=== PATIENT | female | born 1950 | race Caucasian/White ===

== ENCOUNTER 2016-09-15 16:22 | Inpatient (IN) | payer OTHER ==
[~2016-09-15] VITALS: Ht 170.2 cm; Wt 61.7 kg
--- NOTE | ~2016-09-15 | HC ---
[facility] [place] [address] CONSULTATION Name: VERONA BHATT Room #: 460-P ADM IN M.R.#: [id number] Admission: 09/15/16 Attend Phys: Reese Joseph DO Discharge: Date of : 46 Report #: [id number] THIS REPORT FOR: //name// CC: Fredi Joseph DATE OF SERVICE: 09/17/2016 REASON FOR CONSULTATION: Hypoxemia. IMPRESSION: 1. Hypoxemia, question etiology. 2. Left infiltrate and small effusion, question etiology whether this is aspiration pneumonia or result of radiation and small cell lung carcinoma. 3. History of lung carcinoma. 4. Diastolic heart failure. 5. History of breast carcinoma. 6. Abdominal aortic aneurysm. 7. History of tobacco use. 8. Nonsyncopal fall with injury. PLAN: We will obtain records from [facility]. Agree with current antibiotics and corticosteroids and do sputum. DVT prophylaxis per primary. HISTORY OF PRESENT ILLNESS: A 66-year-old female with history of small cell lung CA in 2011, treated by Dr. España and sees Dr. Hartley at [facility]. 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 She denies current shortness of breath or chest pain or sputum production. I showed her x-ray, but she does not recall changes. MEDICATIONS: Include atorvastatin, Prozac, eye drops, Plavix and aspirin. SOCIAL HISTORY: Positive tobacco. Negative ETOH. PAST MEDICAL HISTORY: Includes lung CA, breast CA, shingles, cornea transplant, osteoporosis. REVIEW OF SYSTEMS: Denies fever, chills or sweats. Denies progressive cough or shortness of breath. Denies current palpitations. Positive nausea and vomiting throughout her stay here and dizziness. She does not feel she aspirated. PHYSICAL EXAMINATION: VITAL SIGNS: T-max last night was 100.4, this morning 98, pulse 97, respirations 20 and BP 119/50. EYES: Negative icterus. NECK: Trachea midline. [facility] [address] [place] [address] CONSULTATION Name: VERONA BHATT Room #: 460-P [facility] IN M.R.#: [id number] Admission: 09/15/16 Attend Phys: Reese Joseph DO Discharge: Date of : 46 Report #: [id number] LUNGS: Coarse, left greater than right. HEART: Regular. ABDOMEN: Bowel sounds present. EXTREMITIES: Show no cyanosis or edema. Moved all extremities. LABORATORY DATA: A pH 7.313, pCO2 of 43, pO2 80 and bicarbonate 21. INR 1. White count 11.3, hemoglobin 12 and platelets 161. RADIOLOGICAL DATA: CT PE protocol showed left infiltrate, no embolus and small left effusion. We will follow closely with you. By: 2033 [id number] Kamila Gutierres MD /nt
--- NOTE | ~2016-09-15 | EKG ---
[place] [address] [facility] [place] [address] ELECTROCARDIOGRAM REPORT Name: KARINA BHATTMARISOL Douglas Room #: 460-P ADM IN M.R.#: [id number] Admission: 09/15/16 Attend Phys: Reese Joseph DO Discharge: Date of : 46 Report #: [id number] THIS REPORT FOR: //name// 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
--- NOTE | ~2016-09-15 | CNG ---
[facility] [place] [address] CYTO-NONGYN REPORT PROCEDURE Name: KARINA BHATTMARISOL Douglas Room #: 460-P [facility] IN M.R.#: [id number] Admission: 09/15/16 Date of : 46 Discharge: 09/20/16 Report #: [id number] Path Case #: [id number] CYTOPATHOLOGY REPORT COLLECTION DATE: 09/19/2016 RECEIVED DATE: 09/19/2016 SUBMITTING PHYS: Dr. Kamila Gutierres OTHER PHYS: Dr. Reese Fontaine CLINICAL HISTORY: Right sacral fracuture. SPECIMEN(S) RECEIVED: A.Sputum * * * * * * * * * * * * FINAL DIAGNOSIS: A. Sputum: - No malignant cells identified. - Reactive squamous epithelial cells, acute and chronic inflammatory cells present along with debris. - Fungal organisms morphologically consistent with Amanda species are present (cannot exclude oral contamination). PATHOLOGIST: Nadja Britt M.D. REPORT ELECTRONICALLY SIGNED BY: Nadja Britt M.D. DATE/TIME: 09/20/2016 16:08 * * * * * * * * * * * * GROSS PATHOLOGY: A. Sputum: The specimen is submitted unfixed, labeled "Verona Bhatt". Received by the Cytology Department is two mL of thick yellow fluid. One ThinPrep slide was prepared. (clt 09.19.2016) MAINTENANCE WORKER(S): VIDHYA Perez(ASCP) INITIAL CPT CODE(S): A; 33264 Professional services performed by [facility] at [facility] [address], [place] [address] Technical services performed by [facility] at [address] [place] [address], [address], [place] [address]. [facility] [address] [place] [address] CYTO-NONGYN REPORT PROCEDURE Name: VERONA BHATT Room #: 460-P DIS IN M.R.#: [id number] Admission: 09/15/16 Date of : 46 Discharge: 09/20/16 Report #: [id number] Path Case #: [id number] [address] [facility] [address] [place] [address] PHONE: [phone] DIRECTOR: John Ken M.D. * * * END OF REPORT * * *
--- NOTE | ~2016-09-15 | HC ---
[facility] [place] [address] CONSULTATION Name: YOSI RUBINVERONA LAND Room #: 460-P [facility] IN M.R.#: [id number] Admission: 09/15/16 Attend Phys: Reese Joseph DO Discharge: 09/20/16 Date of : 46 Report #: [id number] THIS REPORT FOR: //name// CC: Fredi Joseph REASON FOR CONSULTATION: Elevated troponin. HISTORY OF PRESENT ILLNESS: The patient is a 66-year-old woman with a complicated history including stage IV small-cell lung cancer diagnosed in 2010 for which she received radiation and chemotherapy. She has a history of left breast cancer with lumpectomy and chemo and radiation therapy as well as peripheral vascular disease and a 3.9-cm abdominal aortic aneurysm. She was at [employer] and fell after losing her balance from a bench. She "fell on her butt and broke her sacrum." While in the hospital, she has been hypoxemic. A variety of tests have been done including a proBNP, which was elevated at 4955, a troponin that was elevated at 0.71, and a CAT scan of the chest, which demonstrated dense consolidating opacities throughout the left lung. I have been asked to see her in light of her troponin elevation. She denies chest pain or pressure. She follows closely with Dr. Kim at [facility] who performed stress testing and keeps an eye on her small infrarenal abdominal aortic aneurysm. Her last stress test she thinks was about 2 years ago and was nonischemic. She denies chest pain, pressure, or ischemic type symptoms. She denies heart failure symptoms including orthopnea or paroxysmal nocturnal dyspnea. 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 Oxygen therapy has not been prescribed. She has been hypoxemic here at this hospital. MEDICATIONS: Her medicines include eye drops, atorvastatin 10 mg daily, Prozac 20 mg daily, Plavix 75 mg daily, and aspirin 81 mg daily. PAST MEDICAL HISTORY: Her past history is notable for carotid stenosis treated medically, this was by angiography in 10/2015. There was complete occlusion of the right vertebral at its origin and an 80% stenosis of the left vertebral. She has a history of dyslipidemia and lung cancer as detailed above, small-cell, stage IV in 2010, shingles, chronic hypotension, osteoporosis, breast cancer with lumpectomy, corneal transplant, and dyslipidemia. SOCIAL HISTORY: She is . She is an ongoing smoker. FAMILY HISTORY: Unremarkable for premature coronary disease. REVIEW OF SYSTEMS: All systems negative except as that noted above. PHYSICAL EXAMINATION: GENERAL: Reveals a thin, chronically debilitated woman who is in no distress. [address] [address] CONSULTATION Name: YOSI CONKLINVERONA R Room #: 460-P [facility] IN M.R.#: [id number] Admission: 09/15/16 Attend Phys: Reese Joseph DO Discharge: 09/20/16 Date of : 46 Report #: [id number] VITAL SIGNS: Blood pressure is 119/50, heart rate of 97 and regular, temperature earlier yesterday was 100.4, she is currently afebrile, 5 feet 7 inches tall, and 136 pounds. HEENT: There are neither xanthelasma, subcutaneous xanthomata, oral mucosal or digital cyanosis, or kyphoscoliosis present. CHEST: Reveals diminished breath sounds throughout the left lung. CARDIAC: Reveals a regular rate and rhythm with normal S1, S2. Jugular venous pressure is not elevated. ABDOMEN: Soft and nontender. EXTREMITIES: Without cyanosis, clubbing, or edema. Radial pulses are 2+. NEUROLOGIC: She is alert with a nonfocal exam. LABORATORY DATA: EKG: Sinus rhythm, normal tracing. Sodium 132, potassium 4.2, and creatinine 0.9. Troponin 0.71. ProBNP of 4955. White count 11.3, hemoglobin 12, hematocrit 37, and platelet count 161. Chest x-ray demonstrates extensive opacities throughout the left lung. IMPRESSION: 1. Non-syncopal fall with injury. 2. Small troponin elevation in the setting of significant hypoxemia, normal EKG and no angina. I believe this is most consistent with supply-demand mismatch (type 2 myocardial infarction). 3. Lung cancer, stage IV, small-cell with remote chemotherapy and radiation therapy. 4. Carotid stenosis. 5. Diastolic heart failure; cor pulmonale, contributing to elevated BNP. 6. Breast cancer. 7. Abdominal aortic aneurysm, 3.9 cm, asymptomatic. 8. Chronic low blood pressures, asymptomatic. 9. Tobacco dependency. RECOMMENDATIONS: Continue therapy with Plavix and Lipitor. Her volume status is stable. I have encouraged smoking cessation. At this point, no additional cardiovascular testing is needed, particularly in the absence of symptoms. I have discussed these issues with the patient and her . Thank you for asking me to participate in her care. <ELECTRONICALLY SIGNED> By: Davy Brooks MD, [facility] 09/20/16 1635 1104 [id number] Davy Brooks MD, FACC /nt
[2016-09-15 16:25] VITALS: BP 141/54
[2016-09-15] MEDS ORDERED: PROZAC20 MG PO (16:35)
[2016-09-15] MEDS ORDERED: LIPITOR 10 MG10 M1 PO (16:35)
[2016-09-15] MEDS ORDERED: PLAVIX 75 MG TA75 M1 PO (16:36)
[2016-09-15] MEDS ORDERED: PRED-FORTE OPHTH1 M1 OP (16:37)
[2016-09-15] MEDS ORDERED: ASPIR 8181 M1 PO (16:38)
[2016-09-15 18:49] LABS: ABSOLUTE NEUTROPHILS 8.8 thou/uL (1.4-8.2); BASOPHILS 0.4 % (0.0-2.0); EOSINOPHILS 0.9 % (0.0-3.0); HEMATOCRIT 39.7 % (37.0-47.0); LYMPHOCYTES 6.7 % (24.0-44.0); MCH 28.5 pg (26.0-34.0); MCHC 32.6 g/dL (28.0-37.0); MCV 87.4 fL (80.0-100.0); MONOCYTES 4.5 % (1.0-8.0); PLATELET COUNT 202 thou/uL (150-400); POLYS 87.5 % (36.0-66.0); RBC 4.54 mil/uL (4.20-5.00); RDW 14.4 % (10.5-14.5); WBC 10.1 thou/uL (4.0-11.0)
[2016-09-15 18:52] LABS: MANUAL DIFF NO
[2016-09-15 18:55] VITALS: BP 142/61
[2016-09-15 18:57] LABS: CALCIUM 8.5 mg/dL (8.5-10.1); CREATININE 0.8 mg/dL (0.6-1.0)
[2016-09-15 19:34] VITALS: BP 122/50
[2016-09-15] MEDS ORDERED: SYMBICORT160 MCG/4. INH (21:43)
[2016-09-15] MEDS ORDERED: BRIMONIDINE TAR1 BO1 OPHTHALMIC (21:45)
[2016-09-15] MEDS ORDERED: LOTEMAX3.5 GM OPHTHALMIC (21:47)
[2016-09-15] MEDS ORDERED: VITAMIN D1000 UNIT PO (21:51)
[2016-09-16 03:55] VITALS: BP 96/47
[2016-09-16 06:10] LABS: HEMATOCRIT 35.2 % (37.0-47.0); HEMOGLOBIN 11.7 gm/dL (12.0-15.0); MCH 28.6 pg (26.0-34.0); MCHC 33.3 g/dL (28.0-37.0); MCV 86.1 fL (80.0-100.0); PLATELET COUNT 171 thou/uL (150-400); RBC 4.08 mil/uL (4.20-5.00); RDW 14.1 % (10.5-14.5); WBC 7.7 thou/uL (4.0-11.0)
[2016-09-16 06:11] LABS: MANUAL DIFF YES
[2016-09-16 06:18] LABS: CALCIUM 8.1 mg/dL (8.5-10.1); CREATININE 0.8 mg/dL (0.6-1.0); POTASSIUM 4.2 mmol/L (3.5-5.1)
[2016-09-16 07:13] VITALS: BP 100/46
[2016-09-16 07:18] LABS: ABSOLUTE NEUTROPHILS 7.1 thou/uL (1.4-8.2); ANISOCYTOSIS SLIGHT; TOTAL CELL COUNT 100
[2016-09-16 16:10] VITALS: BP 85/53
[2016-09-16 19:00] VITALS: BP 102/50
[2016-09-17] VITALS (7 sets, daily range): BP systolic 93–126; BP diastolic 47–62
[2016-09-17 00:25] LABS: ABG SAMPLE TYPE ARTERIAL; BE(vivo) -4.3 mmol/L (-2 to +3); HCO3 19.9 mmol/L (22.0-26.0); LACTATE 0.88 mmol/L (0.5-2.0); O2(CT) 15.9 mL/dL (15.0-23.0); PCO2 34.2 mmHg (35.0-45.0); pH 7.383 (7.360-7.450); sO2 83.7 % (92.0-98.0)
[2016-09-17 00:26] LABS: O2Hb 84.4 % (92.0-98.0); PO2 48.1 mmHg (80.0-100.0); STICK SITE R.RADIAL
[2016-09-17 03:11] LABS: HEMATOCRIT 37.6 % (37.0-47.0); MCH 27.9 pg (26.0-34.0); MCV 87.3 fL (80.0-100.0); RBC 4.31 mil/uL (4.20-5.00); RDW 14.4 % (10.5-14.5); WBC 11.3 thou/uL (4.0-11.0)
[2016-09-17 03:16] LABS: CREATININE 0.9 mg/dL (0.6-1.0); POTASSIUM 4.2 mmol/L (3.5-5.1)
[2016-09-17 03:27] LABS: APTT 29.3 Seconds (24.5-32.8); PROTIME 10.7 Seconds (9.3-11.4)
[2016-09-17 03:31] LABS: TROPONIN-I 0.71 ng/mL (<0.04-0.07)
[2016-09-17 05:50] LABS: ABG SAMPLE TYPE ARTERIAL; BE(vivo) -4.7 mmol/L (-2 to +3); HCO3 21.4 mmol/L (22.0-26.0); LACTATE 1.12 mmol/L (0.5-2.0); O2(CT) 17.2 mL/dL (15.0-23.0); PCO2 43.1 mmHg (35.0-45.0); PO2 80.2 mmHg (80.0-100.0); sO2 94.9 % (92.0-98.0); tCO2 22.7 mmol/L (24.0-30.0)
[2016-09-17 05:52] LABS: STICK SITE R.RADIAL; pH 7.313 (7.360-7.450)
[2016-09-18 04:51] VITALS: BP 110/61
[2016-09-18 06:01] LABS: ABG SAMPLE TYPE ARTERIAL; BE(vivo) 2.4 mmol/L (-2 to +3); HCO3 26.6 mmol/L (22.0-26.0); LACTATE 1.19 mmol/L (0.5-2.0); O2(CT) 16.3 mL/dL (15.0-23.0); O2Hb 94.7 % (92.0-98.0); PCO2 39.9 mmHg (35.0-45.0); PO2 71.2 mmHg (80.0-100.0); pH 7.442 (7.360-7.450); sO2 94.9 % (92.0-98.0); tCO2 27.8 mmol/L (24.0-30.0)
[2016-09-18 06:02] LABS: ABG COMMENT COLL VERIFIED; STICK SITE L.RADIAL
[2016-09-18 06:50] LABS: HEMOGLOBIN 11.8 gm/dL (12.0-15.0); MANUAL DIFF YES; MCH 28.2 pg (26.0-34.0); MCHC 32.8 g/dL (28.0-37.0); MCV 85.8 fL (80.0-100.0); PLATELET COUNT 165 thou/uL (150-400); RDW 14.1 % (10.5-14.5); WBC 10.8 thou/uL (4.0-11.0)
[2016-09-18 07:17] LABS: ALBUMIN 2.8 g/dL (3.4-5.0); CALCIUM 8.6 mg/dL (8.5-10.1); CREATININE 0.9 mg/dL (0.6-1.0); TOTAL BILIRUBIN 0.5 mg/dL (<0.1-1.0); TOTAL PROTEIN 6.4 g/dL (6.4-8.2)
[2016-09-18 07:43] VITALS: BP 119/62
[2016-09-18 10:30] LABS: ABSOLUTE NEUTROPHILS 10.4 thou/uL (1.4-8.2); TOTAL CELL COUNT 100
[2016-09-18 10:31] LABS: ANISOCYTOSIS SLIGHT
[2016-09-18 16:00] VITALS: BP 122/56
[2016-09-18 18:49] VITALS: BP 132/45
[2016-09-19 03:58] VITALS: BP 115/49
[2016-09-19 05:05] LABS: CALCIUM 8.2 mg/dL (8.5-10.1); CREATININE 0.9 mg/dL (0.6-1.0); POTASSIUM 3.7 mmol/L (3.5-5.1)
[2016-09-19 07:51] VITALS: BP 127/67
[2016-09-19 11:27] VITALS: BP 122/59
[2016-09-19 16:53] VITALS: BP 98/74
[2016-09-19 19:09] VITALS: BP 96/52
[2016-09-20 03:25] VITALS: BP 117/64
[2016-09-20 06:10] LABS: HEMATOCRIT 34.2 % (37.0-47.0); HEMOGLOBIN 11.3 gm/dL (12.0-15.0); MCH 28.4 pg (26.0-34.0); MCHC 33.1 g/dL (28.0-37.0); MCV 85.8 fL (80.0-100.0); PLATELET COUNT 179 thou/uL (150-400); RBC 3.99 mil/uL (4.20-5.00); RDW 14.4 % (10.5-14.5); WBC 8.6 thou/uL (4.0-11.0)
[2016-09-20 06:12] LABS: MANUAL DIFF YES
[2016-09-20 06:30] LABS: ALBUMIN 2.6 g/dL (3.4-5.0); CALCIUM 8.7 mg/dL (8.5-10.1); CREATININE 0.8 mg/dL (0.6-1.0); POTASSIUM 3.5 mmol/L (3.5-5.1); TOTAL BILIRUBIN 0.7 mg/dL (<0.1-1.0); TOTAL PROTEIN 6.2 g/dL (6.4-8.2)
[2016-09-20 07:26] LABS: ABSOLUTE NEUTROPHILS 7.1 thou/uL (1.4-8.2); TOTAL CELL COUNT 100
[2016-09-20 07:28] LABS: ANISOCYTOSIS 1+
[2016-09-20 08:03] VITALS: BP 122/66
[2016-09-20] MEDS ORDERED: DUONEB 2.5-0.5 M3 ML INH (11:57)
[2016-09-20] MEDS ORDERED: PREDNISONE 20 M20 M1 PO (11:58)
[2016-09-20] MEDS ORDERED: MUCINEX TA600 MG/TA1 PO (11:58)
[2016-09-20] MEDS ORDERED: PROTONIX 20 MG20 M1 PO (11:58)
[2016-09-20] MEDS ORDERED: MIRALAX17 GM PO (11:58)
[2016-09-20] MEDS ORDERED: OXYCODONE HCL 55 MG PO (11:58)
[2016-09-20] MEDS ORDERED: ZOSYN 3.3753.375 GM IV (11:59)
== END 2016-09-20 15:47 | DRG 551 ==
LOC: ER 16:22 → EROBS 18:21 → 5S 18:21 → 4W 09-17 02:35
PROVIDERS: Family Medicine; Internal Medicine Endocrinology, Diabetes & Metabolism; Internal Medicine Pulmonary Disease; Nurse Practitioner
DX: S32.119A Unspecified Zone I fracture of sacrum, initial encounter for closed fracture (principal); J96.01 Acute respiratory failure with hypoxia; J18.9 Pneumonia, unspecified organism; J44.0 Chronic obstructive pulmonary disease with (acute) lower respiratory infection; I50.30 Unspecified diastolic (congestive) heart failure; E78.5 Hyperlipidemia, unspecified; F17.210 Nicotine dependence, cigarettes, uncomplicated; I65.29 Occlusion and stenosis of unspecified carotid artery; I71.4 Abdominal aortic aneurysm, without rupture; M81.0 Age-related osteoporosis without current pathological fracture; I27.81 Cor pulmonale (chronic); I25.10 Atherosclerotic heart disease of native coronary artery without angina pectoris; R00.0 Tachycardia, unspecified; K59.00 Constipation, unspecified; Z85.118 Personal history of other malignant neoplasm of bronchus and lung; Z85.3 Personal history of malignant neoplasm of breast; Z94.7 Corneal transplant status; Z92.3 Personal history of irradiation; Z82.49 Family history of ischemic heart disease and other diseases of the circulatory system; Z92.21 Personal history of antineoplastic chemotherapy; Z79.82 Long term (current) use of aspirin; Z79.899 Other long term (current) drug therapy; W10.9XXA Fall (on) (from) unspecified stairs and steps, initial encounter; Y93.89 Activity, other specified; Y92.511 Restaurant or cafe as the place of occurrence of the external cause; Y99.8 Other external cause status
CPT/HCPCS: 10047; 10785

== ENCOUNTER 2016-09-20 12:40 | Inpatient (IN) | payer OTHER ==
[~2016-09-20] VITALS: Ht 170.2 cm; Wt 63.8 kg
--- NOTE | ~2016-09-20 | HC ---
[facility] [place] [address] CONSULTATION Name: VERONA BHATT Room #: 515-P ADM IN M.R.#: [id number] Admission: 09/20/16 Attend Phys: Yovany Coto MD Discharge: Date of : 46 Report #: [id number] THIS REPORT FOR: //name// CC: Fredi Riveramonie Yovany Coto DATE OF SERVICE: 09/24/2016 NEUROBEHAVIORAL STATUS EXAM ATTENDING PHYSICIAN: Yovany Coto M.D. BUREAU CHIEF: Manuel Soto, PhD CLINICAL PRESENTATION: The patient is a 66-year-old female admitted to the [facility] for a comprehensive inpatient rehabilitation program to improve functional mobility, activities of daily living and self-care and mental status secondary to deficits from medical complexity with generalized debilitation. Her assessment includes pulmonary rehabilitation, acute respiratory failure with hypoxia, aspiration pneumonia, small cell lung cancer stage IV, COPD, coronary artery disease and diastolic heart failure. A complete description of her medical condition and history can be found in her medical record. Neuropsychological consultation was requested to provide assistance in the assessment of cognitive and emotional status and to provide recommendations and services. The patient reports having been an alcoholic but has remained abstinent from alcohol since 2001. She lives alone in her own home without children. The patient is a college graduate. 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 She had 1 sister that is . The patient describes a good social support network. She indicates a prior history of treatment for depression and anxiety. TECHNIQUES UTILIZED: Clinical interview, review of medical records, staff consultation and behavioral observation, mini mental status exam 2 standard version, interview with male peer, MMSE 2 standard version, calibrated ideational fluency assessment (letter and category fluency) and clock drawing. EXAMINATION FINDINGS: The patient was alert and cooperative with the assessment. There is no evidence of aphasia. She does not report auditory or visual hallucinations. Her memory of events immediately preceding her hospitalization is accurate. It should be noted that she reports a moderate head trauma about two weeks prior to the fall at the [employer] in which she sustained the sacral fracture. The prior fall was while attending her high school reunion when she fell forward striking her head on a cement sidewalk. Additionally, she has had previous falls within the year, with one [facility] [address] [place] [address] CONSULTATION Name: VERONA BHATT Room #: 515-P [facility] IN [facility].#: [id number] Admission: 09/20/16 Attend Phys: Yovayn Coto MD Discharge: Date of : 46 Report #: [id number] fall occurring at her home in which she fell backward, striking the back of her head. Difficulty with walking has been present for over a year. She reports bumping into nino and having difficulty with balance. Cuurent symptoms are reported to include decreased appetite, tiredness and fatigue and variability in memory. Word substitution was noted during the interview. She does not report difficulty with sleep. Continued variability in mood, primarily depression and anxiety is also suggested. Her performance on the MMSE 2 brief version is slightly impaired with a raw score of 13 of 16. She was 3/3 for initial registration, 3/5 for orientation to time and 5/[address]. She was 2/3 correct for immediate recall of 3 items after a brief time delay and distraction. Her performance on the MMSE 2 standard version was within normal limits with a raw score of 26 of 30. She was 5/5 for serial 7's. The patient was unable to copy a simple geometric design. Visual spatial disorganization is suggested. The patient also was unable to accurately draw a clock with placement of the hands at a designated time. Issues of planning were noted within the clock and placement of the hands required multiple attempts. Her performance in letter fluency was in the borderline range with a T score of 36 and percentile rank of 8. Category fluency was extremely low with a percentile rank of less than 1. Total verbal fluency was in the mild to moderate range of deficit with a percentile rank of 3 and a T score of 31. The patient was 6/8 on a brief abstract reasoning test. 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 Persistent depressive disorder -- by history. Alcohol use disorder -- sustained remission. RECOMMENDATIONS: The patient will likely benefit from a more thorough neuropsychological assessment to clarify her cognitive status. Currently, driving should be discontinued until a more formal assessment is completed to determine her safety. Speech therapy may be of benefit during her rehabilitation program with a focus on higher level executive functioning and visual-spatial organization. Thank you very much for allowing me to provide the consultation on this patient. <ELECTRONICALLY SIGNED> By: Manuel Soto, PhD 09/24/16 1442 [id number] [id number] Manuel Soto, PhD /nt
--- NOTE | ~2016-09-20 | H ---
[facility] [address] HISTORY AND PHYSICAL Name: VERONA BHATT Room #: 515-P [facility] IN M.R.#: [id number] Admission: 09/20/16 Attend Phys: Yovany Coto MD Discharge: 10/05/16 Date of : 46 Report #: [id number] THIS REPORT FOR: //name// CC: Fredi Coto DATE OF SERVICE: 09/20/2016 HISTORY AND PHYSICAL/POST-ADMISSION PHYSICIAN EVALUATION HISTORY OF PRESENT ILLNESS: The patient is a 66-year-old white female who was originally admitted to [facility] on 09/15/2016 after a mechanical fall with a sacral fracture. She was seen by orthopedics. She is allowed weightbearing as tolerated. She does have a premorbid history of small cell lung cancer and was noted to have some pulmonary issues with likely aspiration, placed on oxygen, pulmonary medicine has been involved. She was noted to have likely aspiration pneumonia along with COPD and her history of small cell lung CA. She also has a history of diastolic heart failure. She was treated with aerosol therapy, is on oxygen with hopeful titration. She was noted to have significant functional mobility and ADL deficits and has been admitted now for acute in-hospital inpatient rehabilitation. PAST MEDICAL HISTORY: Includes breast cancer, shingles, history of CHF, cornea transplant. MEDICATIONS: Please see the full medication listing. ALLERGIES: No known drug allergies. SOCIAL HISTORY: Lives in a house alone, no assisted device, 2 steps in, male significant other in the area. She was not on O2 prior to admission. REVIEW OF SYSTEMS: She has the sacral pain, especially with movement. She is on oxygen, which is new for her. No current chest pain, shortness of breath or abdominal discomfort. PHYSICAL EXAMINATION: GENERAL: She is a pleasant 66-year-old white female in no obvious distress. VITAL SIGNS: Last recorded temperature is 37, pulse of 100, respirations 20, blood pressure 133/70. NEUROLOGIC: The patient is alert, follows basic 1 step commands without difficulty. She appears appropriate. She is on 2 liters nasal cannula. HEENT: Facies are symmetric. CHEST: Some decreased breath sounds throughout. CARDIAC: Regular rate and rhythm. ABDOMEN: Bowel sounds positive, nontender. [address] [address] HISTORY AND PHYSICAL Name: VERONA BHATT Room #: 515-P [facility] IN .R.#: [id number] Admission: 09/20/16 Attend Phys: Yovany Coto MD Discharge: 10/05/16 Date of : 46 Report #: [id number] GENITOURINARY AND RECTAL: Deferred. EXTREMITIES: She does have functional range of motion of both upper extremities with strength grade 4-/5. DTRs are trace to 1. Lower extremities, no focal calf swelling, functional range of motion with strength grade 3+ to 4-/5. DTRs are trace to 1. There is no focal calf swelling. Functionally, she has been mod assist with sit to stand. She has not ambulated yet. ASSESSMENT: A 66-year-old white female with the following problem list: 1. Pulmonary rehabilitation. 2. Medical complexity with generalized debilitation. 3. Acute respiratory failure with hypoxia. 4. Likely aspiration pneumonia. 5. Small cell lung cancer, stage IV. 6. Chronic obstructive pulmonary disease. 7. Coronary artery disease. 8. Diastolic heart failure. PLAN: The patient is admitted for acute in-hospital inpatient rehabilitation. From a post-admission physician evaluation perspective, there are no relevant changes since the preadmission screening. Please see the above review of prior and current medical and functional conditions and comorbidities. Please see the patient's previous and current functional status. As far as risk of complications, there are multiple medical comorbidities as noted above. The initial plan of care involves the interdisciplinary acute inpatient rehabilitation program with the goal of maximizing the patient's functional independence, so that she can hopefully return back to her prior living situation. Measurable functional goals would be for the patient to become modified independent with transfers, mobility and ADLs and to further improve from her overall medical comorbidities, so that she can return back to the home setting. Prognosis is reasonably good with estimated length of stay probably at least 2 weeks. Potential barriers would include her multiple medical comorbidities and decreased functional status. The patient meets diagnostic criteria for an acute in-hospital inpatient rehabilitation stay. She meets medical necessity criteria and we will have the executive talent acquisition consultant physicians continue to follow while she is on the rehab romeo. She does have the appropriate tolerance for the rehab therapy program and has appropriate discharge goals back to the home setting. <ELECTRONICALLY SIGNED> By: Yovany Coto MD 10/06/16 1350 [id number] [id number] Yovany Coto MD /nt
[~2016-09-20 12:40] MED LIST: ASPIR 8181 M1 PO; BRIMONIDINE TAR1 BO1 OPHTHALMIC; DUONEB 2.5-0.5 M3 ML INH; LIPITOR 10 MG10 M1 PO; LOTEMAX3.5 GM OPHTHALMIC; MIRALAX17 GM PO; MUCINEX TA600 MG/TA1 PO; OXYCODONE HCL 55 MG PO; PLAVIX 75 MG TA75 M1 PO; PRED-FORTE OPHTH1 M1 OP; PREDNISONE 20 M20 M1 PO; PROTONIX 20 MG20 M1 PO; PROZAC20 MG PO; SYMBICORT160 MCG/4. INH; VITAMIN D1000 UNIT PO; ZOSYN 3.3753.375 GM IV
[2016-09-20 15:45] VITALS: BP 143/75
[2016-09-20 16:30] VITALS: BP 108/59
[2016-09-21 05:29] VITALS: BP 133/70
[2016-09-21 06:28] LABS: HEMATOCRIT 35.6 % (37.0-47.0); HEMOGLOBIN 11.6 gm/dL (12.0-15.0); MCHC 32.6 g/dL (28.0-37.0); RBC 4.14 mil/uL (4.20-5.00); RDW 14.2 % (10.5-14.5); WBC 11.2 thou/uL (4.0-11.0)
[2016-09-21 06:38] LABS: CALCIUM 8.7 mg/dL (8.5-10.1); CREATININE 0.8 mg/dL (0.6-1.0); MAGNESIUM 1.9 mg/dL (1.8-2.4); POTASSIUM 3.7 mmol/L (3.5-5.1)
[2016-09-21 15:06] VITALS: BP 109/67
[2016-09-22 06:07] VITALS: BP 116/60
[2016-09-22 16:00] VITALS: BP 118/63
[2016-09-23 06:09] VITALS: BP 124/69
[2016-09-23 15:55] VITALS: BP 119/60
[2016-09-24 05:40] VITALS: BP 148/54
[2016-09-24 15:59] VITALS: BP 137/64
[2016-09-25 06:04] VITALS: BP 100/54
[2016-09-25 15:34] VITALS: BP 146/55
[2016-09-25 15:38] VITALS: BP 104/68
[2016-09-26 04:54] VITALS: BP 132/54
[2016-09-26 15:56] VITALS: BP 120/56
[2016-09-27 04:46] VITALS: BP 137/73
[2016-09-28 03:51] VITALS: BP 145/61
[2016-09-28 16:19] VITALS: BP 107/51
[2016-09-28 19:23] VITALS: BP 118/45
[2016-09-29 05:02] VITALS: BP 118/62
[2016-09-29 06:03] LABS: HEMATOCRIT 31.2 % (37.0-47.0); HEMOGLOBIN 10.3 gm/dL (12.0-15.0); MCH 28.8 pg (26.0-34.0); MCHC 33.2 g/dL (28.0-37.0); MCV 86.9 fL (80.0-100.0); PLATELET COUNT 379 thou/uL (150-400); RBC 3.59 mil/uL (4.20-5.00); RDW 14.8 % (10.5-14.5); WBC 7.6 thou/uL (4.0-11.0)
[2016-09-29 06:08] LABS: MANUAL DIFF YES
[2016-09-29 06:22] LABS: CALCIUM 8.3 mg/dL (8.5-10.1); CREATININE 0.8 mg/dL (0.6-1.0); POTASSIUM 3.8 mmol/L (3.5-5.1)
[2016-09-29 08:17] LABS: ABSOLUTE NEUTROPHILS 6.2 thou/uL (1.4-8.2); PLATELET ESTIMATE NORMAL; TOTAL CELL COUNT 100
[2016-09-29 16:00] VITALS: BP 94/43
[2016-09-30 05:31] VITALS: BP 123/62
[2016-09-30 16:00] VITALS: BP 109/58
[2016-10-01 06:17] VITALS: BP 147/95
[2016-10-01 16:00] VITALS: BP 117/59
[2016-10-02 03:36] VITALS: BP 125/67
[2016-10-02 16:05] VITALS: BP 99/45
[2016-10-03 06:20] VITALS: BP 128/63
[2016-10-03 16:00] VITALS: BP 99/57
[2016-10-04 06:23] VITALS: BP 145/81
[2016-10-04 16:00] VITALS: BP 123/61
[2016-10-05 05:25] VITALS: BP 146/61
[2016-10-05] MEDS ORDERED: COLACE100 MG PO (07:31)
[2016-10-05] MEDS ORDERED: GABAPENTIN 100100 MG PO (07:31)
[2016-10-05] MEDS ORDERED: LIDODERM 5%1 PATC1 TRANSDERM (07:31)
[2016-10-05] MEDS ORDERED: MUCINEX TA600 MG/TA1 PO (07:31)
[2016-10-05] MEDS ORDERED: TYLENOL EXTRA500 MG PO (07:31)
== END 2016-10-05 14:24 | DRG 551 ==
PROVIDERS: Nurse Practitioner; Physical Medicine & Rehabilitation
DX: S32.10XA Unspecified fracture of sacrum, initial encounter for closed fracture (principal); J96.01 Acute respiratory failure with hypoxia; J69.0 Pneumonitis due to inhalation of food and vomit; I50.30 Unspecified diastolic (congestive) heart failure; R53.81 Other malaise; G31.84 Mild cognitive impairment of uncertain or unknown etiology; F32.9 Major depressive disorder, single episode, unspecified; F10.10 Alcohol abuse, uncomplicated; Z60.2 Problems related to living alone; I25.10 Atherosclerotic heart disease of native coronary artery without angina pectoris; K59.00 Constipation, unspecified; W18.39XA Other fall on same level, initial encounter; I71.4 Abdominal aortic aneurysm, without rupture; I65.29 Occlusion and stenosis of unspecified carotid artery; I27.81 Cor pulmonale (chronic); J44.9 Chronic obstructive pulmonary disease, unspecified; Z94.7 Corneal transplant status; Y93.89 Activity, other specified; Y92.89 Other specified places as the place of occurrence of the external cause; Y99.8 Other external cause status; Z85.3 Personal history of malignant neoplasm of breast; Z85.118 Personal history of other malignant neoplasm of bronchus and lung
CPT/HCPCS: 10112